=== PATIENT | female | born 1960 | race Caucasian/White ===

== ENCOUNTER 2023-08-17 20:44 | Day surgery (SDC) | payer OTHER, SELFPAY ==
[2023-08-17 20:44] VITALS: BMI 25.4
[2023-08-17 20:45] VITALS: BP 133/87
[2023-08-17] MEDS: GlucaGen 1 MG IV (21:01)
--- NOTE | 2023-08-17 21:01 | ED.GENMED ---
History of Present Illness
General
Chief Complaint: Esophageal Problem
Source: patient and ambulance crew
Exam Limitations: none
Time Seen by Provider: 08/17/23 20:53
Nursing documentation reviewed up to this point in time: agreed with
Travel History
Have you had any contact with someone who has COVID-19?: No
Do you have any symptoms of coronavirus? Fever > 100 degrees, chills, cough, shortness of breath, sore throat, loss of taste or smell, muscle aches, or headache?: No
History of Present Illness
History of Present Illness:
63-year-old female presents emergency department due to a piece of steak in her esophagus. Bystanders performed the Heimlich maneuver on her her which she says dislodge the steak but is still in her esophagus. She is unable to tolerate her
secretions.
Past History
Past History
ED Past Medical History: Cancer (Lung cancer) and NIDDM
ED Past Surgical History: Other (Double mastectomy, lung surgery)
Social History
Tobacco: Non-smoker
Drug: None
Personal:
Living: with family
Review of Systems
Review of Systems
Allergies reviewed?: Yes
All Other Systems: Not applicable
Constitutional: Reports no symptoms
EENT: Reports no symptoms
Respiratory: Reports no symptoms
Cardiac: Reports no symptoms
ABD/GI: Reports vomiting
: Reports no symptoms
Musculoskeletal: Reports no symptoms
Skin: Reports no symptoms
Phy Exam
Physical Exam
Physical Exam:
Physical Exam
General: Appears uncomfortable, afebrile
Neck: supple. no meningeal signs. normal posterior pharynx
Heart: s1/s2 tachycardia, no murmur. equal radial
pulses.
HEENT: Pupils equal round reactive to light, EOMI
Lungs: no acute respiratory distress. clear bilaterally
Abdomen: normal bowel sounds. not tender. no CVAT
Neuro: alert and oriented. no focal neurological deficits
Skin: no rash
Psychiatric: well kept. interactive and cooperative
Extremities: no edema. no calf tenderness. negative homans. good distal pulses
Course
Orders/Labs/Results
Orders:
Orders
08/17/23 20:53
IV Insert/Care/Rem.- Treatment PRN
08/17/23 20:54
Glucagon [GlucaGen] 1 mg IV NOW STA
08/17/23 21:41
Dexamethasone Sod Phosphate [Decadron] 20 mg .ROUTE .STK-MED ONE
Lidocaine HCl/Pf [Xylocaine-Mpf 1% Vial] 50 mg .ROUTE .STK-MED ONE
Ondansetron Injectable [Zofran] 4 mg .ROUTE .STK-MED ONE
Rocuronium [place] [Rocuronium] 50 mg .ROUTE .STK-MED ONE
Sugammadex Sodium [Bridion] 200 mg .ROUTE .STK-MED ONE
08/17/23 21:42
Phenylephrine HCl/0.9% NaCl [Bradley-Synephrine] 1,000 mcg .ROUTE .STK-MED ONE
Propofol [Diprivan] 20 ml .ROUTE .STK-MED
Succinylcholine Chloride [Succinylcholine] 200 mg .ROUTE .STK-MED ONE
Abnormal Lab Results
08/17/23
22:12
POC Glucose 205 H mg/dl
(70-99)
Vital Signs
Initial and Last Documented VS:
Initial Vital Signs
Temp Pulse Resp BP Pulse Ox
97.8 F 111 21 133/87 97
08/17/23 20:45 08/17/23 20:45 08/17/23 20:45 08/17/23 20:45 08/17/23 20:45
Last Documented Vital Signs
Temp Pulse Resp BP Pulse Ox
97.8 F 116 20 134/86 95
08/17/23 20:45 08/17/23 22:15 08/17/23 22:15 08/17/23 22:00 08/17/23 22:15
MDM/Problems Addressed
Differential Diagnosis Includes:
Esophageal obstruction, reflux
MDM/Problems Addressed:
63-year-old female with esophageal obstruction. GI will take for endoscopy.
Chronic conditions affecting care: Cancer
Acute Exacerbation and/or Progression of Chronic Illness: Cancer
*Pulse Oximetry
Patient hypoxic: no
*EKG
Interpreted by ED Provider?: NA
*Family Development Extension Specialist Interpretation
Rate: Family Development Extension Specialist- N/A
*Critical Care Note
Total Time (30-74mins, 75-104mins- exclusive of procedures): Not Applicable
Patient Management
Social determinants of health affecting care: Strong social support
Discussion with other providers: Rough Planer Tender (Dr. Coronado, gastroenterology)
Escalation/DeEscalation of care consider admission/obs:
Admit indicated
ED Attending Note
-
Portions of this chart may have been created with voice recognition software.� Occasional wrong word or��sound alike� substitutions may have occurred due to the inherent limitations of voice recognition software.
Discharge Plan
Departure
Patient Disposition: GI LAB
Date of Disposition: 08/17/23
Time of Disposition: 21:11
Presentation/result/management discussed w/ accepting MD/DO: Gastroenterology Dr. Ortiz
Patient with high blood pressure during this ER visit?: Yes
Condition: Good
Discharge Problem:
Food impaction of esophagus
Interventions
Interventions:
*Risk Screen - Suicide Last Done: 08/17/23 20:45
*General Assessment Last Done: 08/17/23 20:45
*Neglect/Abuse Screening Last Done: 08/17/23 20:45
ED- Fall Risk Assessment Last Done: 08/17/23 21:25
*ED COVID-19 Vaccine History Last Done: 08/17/23 21:25
*Nursing Disposition Last Done: 08/17/23 22:26
FH-Unlavy-Ojyydfhefu Assessment Last Done: 08/17/23 21:25
ED-EENT Assessment Last Done: 08/17/23 21:25
Discharge Date and Time
Discharge Date/Time: 08/17/23 22:27
[2023-08-17 21:04] VITALS: BP 120/83
[2023-08-17 22:00] VITALS: BP 134/86
[2023-08-17 22:14] LABS: Glucose - Point of Care 205 mg/dl (70-99)
--- NOTE | 2023-08-17 22:24 | CON.GI ---
Consultation
-
Date/Time Consultation Requested: 08/17/2023
Date/Time Consultation Performed: 08/17/2023
Requesting Provider: ED
Performing Provider: Valentina GOODMAN
Reason for Consultation: Food impaction
Medical History
Chief Complaint / HPI
Chief Complaint: food impaction
History of Present Illness:
63 y/o female with hx of stage 4 lung cancer, DM, GERD is here c/o food impaction . She was eating steak for dinner then she felt a piece got stuck . Initially she couldn't breathe and heimlich maneuver was attempted by family. She felt bit better
after that and felt the piece moved down her chest. Currently unable to tolerate secretions . Denies any chest pain/ shortness of breath . No prior episodes of food impaction. no prior EGD.
Past Medical History
Past Medical History: Other (above)
Social History
Tobacco: Former Smoker
Allergies / Home Medications
Allergy/AdvReac Type Severity Reaction Status Date / Time
adhesive tape Allergy Unknown Verified 08/17/23 20:57
morphine Allergy Unknown Verified 08/17/23 20:57
Review of Systems
-
All other systems: A 12 pt ROS was Negative except as stated above in HPI
Vital Signs
Temp Pulse Resp BP Pulse Ox
97.8 F 111 22 120/83 97
08/17/23 20:45 08/17/23 21:04 08/17/23 21:15 08/17/23 21:04 08/17/23 21:15
Physical Exam
Exam
General: Well Developed and Other (in distress )
Respiratory: Clear
Cardiac: S1/S2
GI: Soft, Non Tender, Non Distended and Normal Bowel Sounds
Neuro: AO x 3
Results
Diagnostic Image Results:
Prior GI Procedures:
EGD: none
Colonoscopy: 6-7 yrs back outside facility. unable to recall .
Assessment / Plan
-
63 y/o female with hx of stage 4 lung cancer on chemo c/o food impaction ( she was eating steak for dinner ). No prior episodes . hx of GERD controlled with PPI
--Food impaction - unable to tolerate secretions
plan
will schedule for urgent EGD
NPO
-
-
Thank you for consultation and allowing me to participate in the patient's care. Please call the double end tenon operator GI physician during the after hours with any questions or concerns.
[2023-08-18 00:07] VITALS: BP 123/80; BP 148/112
[2023-08-18 00:13] VITALS: BP 123/80; BP 148/112
[2023-08-18 00:21] LABS: Glucose - Point of Care 144 mg/dl (70-99)
[2023-08-18 00:28] VITALS: BP 107/67
[2023-08-18 00:50] VITALS: BP 117/79
[2023-08-18 00:58] VITALS: BP 123/82
== END 2023-08-17 22:27 ==
LOC: GI 20:44
PROVIDERS: ATTENDING PHYSICIAN Emergency Medicine; FAMILY PHYSICIAN Nurse Practitioner Family
DX: T18.128A Food in esophagus causing other injury, initial encounter (principal); T18.2XXA Foreign body in stomach, initial encounter; W44.F3XA Food entering into or through a natural orifice, initial encounter; K20.90 Esophagitis, unspecified without bleeding
CPT/HCPCS: 43247; 82962; J1610